=== PATIENT | female | born 1955 | race Caucasian/White ===

== ENCOUNTER → 2021-11-21 | Outpatient (CLI) | payer MEDICARE, OTHER | LOC: KOH-I 09:18 | DX: M79.671 Pain in right foot (principal); M79.672 Pain in left foot; M19.079 Primary osteoarthritis, unspecified ankle and foot | CPT/HCPCS: 73630 ==

== ENCOUNTER → 2021-12-18 | Outpatient (CLI) | payer MEDICARE, OTHER | LOC: EXRD 12-10 14:00 | DX: Z13.820 Encounter for screening for osteoporosis (principal) | CPT/HCPCS: 77080 ==

== ENCOUNTER → 2021-12-19 | Outpatient (CLI) | payer MEDICARE, OTHER | LOC: MRI 13:00 | DX: M84.375A Stress fracture, left foot, initial encounter for fracture (principal); G89.29 Other chronic pain; M19.072 Primary osteoarthritis, left ankle and foot | CPT/HCPCS: 73718 ==